=== PATIENT | female | born 1995 | race Hispanic/Latino ===

== ENCOUNTER 2018-01-13 07:02 | Inpatient (IN) | payer OTHER ==
[~2018-01-13 07:02] MED LIST: ACETAMINOPHEN 500 MG TAB PO PRN; DIPHENHYDRAMINE 50 MG/ML VIAL IV PRN; METOCLOPRAMIDE 10 MG/2mL INJ IV PRN; ONDANSETRON 4 MG/2 ML VIAL IV PRN; Ringers Lactate 1,000 ML IV PRN; Ringers Lactate 1,000 ML IV SCH
--- OUTSIDE RECORDS SUMMARY | 2018-01-13 07:04 | XMS REPORT ---
:1995 Author Organization eClinicalWorks Care Team Providers Name Role Phone Agnieszka Anna Provider Role Unavailable Allergies No Known Allergies Problems Problem Type Condition Code Onset Dates Condition Status Problem Multigravida in third trimester Z34.83 Active Problem Abnormal glucose tolerance in O99.810 Active mother complicating Problem Gestational diabetes mellitus (GDM) O24.419 Active in third trimester, gestational diabetes method of control unspecified Assessment Multigravida in third trimester Z34.83 Active Assessment Gestational diabetes mellitus (GDM) O24.419 Active in third trimester, gestational diabetes method of control unspecified Medications Medication Code System Code Instructions Start End Date Status Dosage Date Ferralet 90 [facility] [id number] 90-1 MG Orally October 16, Active 1 tablet Once a day 2017 Results No Known Results Summary Purpose eClinicalWorks Submission
--- OUTSIDE RECORDS SUMMARY | 2018-01-13 07:04 | XMS REPORT ---
[...] gestational diabetes method of control unspecified Assessment Gestational diabetes mellitus (GDM) O24.419 Active in third trimester, gestational diabetes method of control unspecified Assessment Multigravida in third trimester Z34.83 Active Medications Medication Code System Code Instructions Start End Date Status Dosage Date Ferralet [address] [facility] [id number] 90-1 MG Orally October 16, Active 1 tablet Once a day 2017 Results No Known Results Summary Purpose eClinicalWorks Submission
--- OUTSIDE RECORDS SUMMARY | 2018-01-13 07:04 | XMS REPORT ---
:1995 Author Organization eClinicalWorks Care Team Providers Name Role Phone Agnieszka Anna Provider Role Unavailable Allergies No Known Allergies Problems Problem Type Condition Code Onset Dates Condition Status Problem Multigravida in third trimester Z34.83 Active Assessment Gestational diabetes mellitus (GDM) O24.419 Active in third trimester, gestational diabetes method of control unspecified Problem Gestational diabetes mellitus (GDM) O24.419 Active in third trimester, gestational diabetes method of control unspecified Assessment Multigravida in third trimester Z34.83 Active Medications Medication Code Code Instructions Start End Date Status Dosage System Date Ferralet 90 [facility] [id number] 90-1 MG Orally October 16, Active 1 tablet Once a day 2017 Macrobid [facility] [id number] 100 MG Orally January 08, Active 1 capsule every 12 hrs 2018 with food Results No Known Results Summary Purpose eClinicalWorks Submission
--- OUTSIDE RECORDS SUMMARY | 2018-01-13 07:04 | XMS REPORT ---
:1995 Author Organization eClinicalWorks Care Team Providers Name Role Phone Agnieszka Anna Provider Role Unavailable Allergies No Known Allergies Problems Problem Type Condition Code Onset Dates Condition Status Problem Multigravida in third trimester Z34.83 Active Assessment Multigravida in third trimester Z34.83 Active Problem Gestational diabetes mellitus (GDM) O24.419 Active in third trimester, gestational diabetes method of control unspecified Assessment Gestational diabetes mellitus (GDM) O24.419 Active in third trimester, gestational diabetes method of control unspecified Assessment Symptom involving bladder R39.89 Active Medications Medication Code Code Instructions Start End Date Status Dosage System Date Ferralet 90 [facility] [id number] 90-1 MG Orally October 16, Active 1 tablet Once a day 2017 Macrobid [facility] 23456306899 100 MG Orally January 08, Active 1 capsule every 12 hrs 2018 with food Results No Known Results Summary Purpose eClinicalWorks Submission
--- OUTSIDE RECORDS SUMMARY | 2018-01-13 07:04 | XMS REPORT ---
[...] End Date Status Dosage Date Ferralet 90 [facility] [id number] 90-1 MG Orally October 16, Active 1 tablet Once a day 2017 Results No Known Results Summary Purpose eClinicalWorks Submission
--- OUTSIDE RECORDS SUMMARY | 2018-01-13 07:04 | XMS REPORT ---
:1995 Author Organization eClinicalWorks Care Team Providers Name Role Phone Agnieszka Anna Provider Role Unavailable Allergies No Known Allergies Problems Problem Type Condition Code Onset Dates Condition Status Problem Abnormal glucose tolerance in O99.810 Active mother complicating Assessment Multigravida in third trimester Z34.83 Active Problem Multigravida in third trimester Z34.83 Active Assessment Abnormal glucose tolerance in O99.810 Active mother complicating Medications Medication Code System Code Instructions Start End Date Status Dosage Date Ferralet 90 [facility] [id number] 90-1 MG Orally October 16, Active 1 tablet Once a day 2018 Results No Known Results Summary Purpose eClinicalWorks Submission
[2018-01-13] MEDS ORDERED: miSOPROStol 100 MCG TAB PO ONE (08:00)
[2018-01-13 08:26] LABS: Absolute Lymphocytes (CBC) 3.2 K/uL (0.7-4.9); Absolute Neutrophil 6.3 K/uL (1.8-8.0); Basophils % 0.4 % (0-1.3); Eosinophils % 0.5 % (0-4.4); Hematocrit 36.7 % (36.0-45.0); Lymphocytes % 30.3 % (15.3-44.8); MCH 28.1 pg (27.0-35.0); MCV 85.3 fL (80-100); MPV 9.5 fL (7.6-11.3); Monocytes % 9.2 % (3.3-12.3)
[2018-01-13 08:27] LABS: Urine Appearance CLEAR; Urine Bilirubin NEGATIVE (NEG); Urine Blood NEGATIVE (NEG); Urine Color YELLOW; Urine Glucose NEGATIVE (NEG); Urine Protein TRACE (NEG); Urine Specific Gravity >=1.030 (1.005-1.030)
[2018-01-13 08:28] VITALS: BMI 33.3
[2018-01-13 08:38] LABS: Urine Microscopic Reflex ORDER UMIC
[2018-01-13 08:49] LABS: RPR Titer ND
--- NOTE | 2018-01-13 09:21 | P.HP ---
Certification for Inpatient Patient admitted to: Inpatient With expected LOS: >2 Midnights Patient will require the following post-hospital care: None Practitioner: I am a practitioner with admitting privileges, knowledge of patient current condition, hospital course, and medical plan of care. Services: Services provided to patient in accordance with Admission requirements found in Title 42 Section 412.3 of the Code of Federal Regulations Patient History Date of Service: 01/13/18 Reason for admission: Induction of labor/GDM History of Present Illness: 22 y.o. at 38w5d by second trimester ultrasound presents for induction of labor due to diagnosis of GDM. She is diet controlled with moderate control reported. She has had follow-up with maternal medicine since approximately 34 weeks of gestation. She started care with me at 20 weeks when she relocated here from [place] following [place]. There was a lapse in care of ~6 weeks early in the course due to reported social issues but she has had routine an adequate follow up since then. On admission, denies bleeding, pain or leakage of fluid. Baby is active. Most recent MFM reports mild ventriculomegaly. Quad screen was negative. MADELINE: 01/22/2018 GBS negative Allergies No Known Allergies Allergy (Unverified 09/17/17 19:09) - Past Medical/Surgical History Diabetic: No -: GDM -: H/o miscarriage Past Surgical History: Patient denies surgical history - Social History Smoking Status: Never smoker Alcohol use: No CD- Drugs: No Caffeine use: No Place of Residence: Home Physical Examination - Vital Signs Temperature: 98 F Blood Pressure: 110/64 Pulse: 84 Respirations: 16 - Physical Exam General: Alert, In no apparent distress, Oriented x3 HEENT: Atraumatic, Normocephalic Respiratory: Other (Normal effort) Cardiovascular: Normal pulses Musculoskeletal: Swelling (Trace ankle edema) Integumentary: No rashes, No breakdown - Studies Laboratory Data (last 24 hrs) 01/13/18 07:25: WBC 10.5, Hgb 12.1, Hct 36.7, Plt Count 348 Female Exam - Female Pelvic Cervix: Dilation (3 per RN exam), Effacement (70), station (-1) Uterus: Non-tender, Soft, Gravid - Obstetrics heart rate tracing: Category 1 Contractions: Frequency (q 3-4 min) Amniotic membrane: Intact Assessment and Plan - Problems (Diagnosis) (1) GDM (gestational diabetes mellitus) Current Visit: Yes Status: Acute Plan: Patient admitted for induction of labor. Cervical ripening has been started with Cytotec p.o. x1 dose. She has now has a favorable cervix. Will transition to Pitocin following 4 hr from last Cytotec administration. Plan for Accu- Cheks q4 hr during induction and q2 hr in active labor. She desires an epidural and may receive at her request. Will keep on continuous monitoring. Qualifiers: Gestational diabetes mellitus control: diet-controlled Trimester: third trimester Qualified Code(s): O24.410 - Gestational diabetes mellitus in , diet controlled (2) Language barrier affecting health care Current Visit: Yes Status: Chronic Plan: Speaks [place]. - Advance Directives Does patient have a Living Will: No Does patient have a Durable POA for Healthcare: No
[2018-01-13 09:57] LABS: Urine Amorphous Sediment 1+ /HPF (NONE SEEN); Urine Bacteria <20 /HPF (<20); Urine Culture Reflex Order REFLEXED; Urine Mucus 1+ /HPF (NONE SEEN); Urine RBC <5 /HPF (NONE SEEN)
[2018-01-13] MEDS ORDERED: BUPIVACAINE 0.25% PF 10 ML VIAL IV PRN (11:16)
--- NOTE | 2018-01-13 12:13 | P.PN ---
Date of Service: 01/13/18 Pt seen and examined. She denies significant pain. Discussed AROM, pt agreed. Procedure done without incident. Scant amount of clear fluid noted. SVE: 3-/-2, mid, soft. VSS Continue IOL process. Epidural per patient request.
[2018-01-13] MEDS ORDERED: FENTANYL CITR 100 MCG/2 ML IV ONE (12:28)
[2018-01-13] MEDS ORDERED: FENTANYL/BUPIVACAINE/NS/PF 200 MCG/100 ML BAG EP PRN (12:46)
[2018-01-13] MEDS ORDERED: ROPIVACAINE HCL 0 ML IV ONE (13:00)
[2018-01-13] MEDS ORDERED: ROPIVACAINE HCL 0 ML ONE (14:09)
[2018-01-13] MEDS ORDERED: OXYTOCIN/LR 20 UNIT/1,000 ML BAG IV ONE (14:36)
[2018-01-13] MEDS ORDERED: OXYTOCIN/LR 20 UNIT/1,000 ML BAG IV SCH (15:00)
[2018-01-13] MEDS ORDERED: BUTORPHANOL 1 MG/ML INJ IV PRN (15:09)
[2018-01-13] MEDS ORDERED: CARBOPROST TROME 250 MCG/ML IM ONE (16:58)
[2018-01-13] MEDS ORDERED: METHYLERGONOVINE 0.2MG/ML AMP IM ONE (16:59)
--- NOTE | 2018-01-13 18:10 | P.OP ---
Preoperative diagnosis: Induction of labor, GDM Postoperative diagnosis: Same Primary procedure: Secondary procedure: AROM Anesthesia: None Estimated blood loss: 350 cc Specimen: Placenta Findings: See operative report Operative Technique: Findings: Female fetus in HEDY position. APGARS 8/9 at 1 and 5 minutes, respectively. Weight of 7 lbs 10 oz. 2nd degree midline laceration. Left labial laceration noted. Clear amniotic fluid. Stage I: 5h 12 min, Stage II: 38 min Indications: The patient was admitted to Labor and Delivery for induction of labor due to diagnosis of GDMA1 with moderate control. MADELINE: 01/22/2018. She was followed by MFM. lab showed O+ blood type with negative antibody screen. Hepatitis B surface Ag, RPR, and HIV non-reactive. She is rubella immune. GBS negative. She denied complaints on admission. Procedure: She was admitted for cervical ripening which was done with cytotec PV x1 dose. She made cervical change and AROM was done. Clear fluid was noted. Patient declined an epidural. Contractions and intensity increased increased. She was given Stadol for pain with good result. Labor progressed normally. She had a spontaneous vaginal delivery of a live born female at 17:38 with clear fluid as noted from HEDY position. After controlled delivery of the head the shoulders and body were delivered without difficulty. The was placed on patient's abdomen for skin to skin contact. Findings as recorded above. There was no depression. was vigorous, crying, and moving all extremities. Spontaneous delivery of an intact placenta with a three-vessel cord was noted at 17:43. On examination, there were was a second degree midline laceration and a left labial tear. The midline tear was repaired using 2-0 vicryl in the usual fashion. The left labial tear was approximated by placing a figure of 8 using the same suture. On vaginal exam, there were no noted cervical or vaginal sidewall lacerations. Estimated blood loss was less than 350 cc. Mother and infant are in recovery doing well at this time. Complications: None Fluids & blood products: mIVF Transferred to: Recovery Room Condition: Good
[2018-01-13] MEDS ORDERED: DOCUSATE NA/SENNA CONC 1 TAB PO PRN (18:11)
[2018-01-13] MEDS ORDERED: ZOLPIDEM TARTRATE 5 MG TABLET PO PRN (18:11)
[2018-01-13] MEDS ORDERED: ONDANSETRON 4 MG (ODT) TAB PO PRN ×2 (18:11)
[2018-01-13] MEDS ORDERED: IBUPROFEN 200 MG TAB PO PRN (18:11)
[2018-01-13] MEDS ORDERED: DIPHENHYDRAMINE 25 MG TAB/CAP PO PRN (18:11)
[2018-01-13] MEDS ORDERED: METOCLOPRAMIDE 5 MG TAB PO PRN (18:11)
[2018-01-13] MEDS ORDERED: Ringers Lactate 1,000 ML IV SCH (19:00)
[2018-01-13 22:36] LABS: RPR (Rapid Plasma Reagin) NON-REACT (NON-REACT)
[2018-01-14] MEDS: CODEINE 30MG/APAP 300MG TAB PO PRN ×4 (07:30→20:42)
--- NOTE | 2018-01-14 13:25 | P.DS ---
Admission Date: 01/13/18 Discharge Date: 01/22/18 Disposition: ROUTINE DISCHARGE Comment: Rounding with discharge summary Discharge Condition: GOOD Reason for Admission: Induction of labor/GDM - Problems (1) GDM (gestational diabetes mellitus) Onset Date: 01/14/18 Status: Resolved Qualifiers: Gestational diabetes mellitus control: diet-controlled Trimester: third trimester Qualified Code(s): O24.410 - Gestational diabetes mellitus in , diet controlled (2) Language barrier affecting health care Onset Date: 01/14/18 Status: Chronic Brief History of Present Illness: 22 y.o. at 38w5d by second trimester ultrasound presents for induction of labor due to diagnosis of GDM. She is diet controlled with moderate control reported. She has had follow-up with maternal medicine since approximately 34 weeks of gestation. She started care with [facility] at 20 weeks when she relocated here from [place] following [place]. There was a lapse in care of ~6 weeks early in the course due to reported social issues but she has had routine an adequate follow up since then. On admission, denies bleeding, pain or leakage of fluid. Baby is active. Most recent MFM reports mild ventriculomegaly. Quad screen was negative. MADELINE: 01/22/2018 GBS negative Hospital Course: Patient is admitted for induction of labor due to her diagnosis of GDM, diet controlled. She had moderate control. She is admitted for cervical ripening which was started with Cytotec and then she was transitioned to Pitocin and had AROM. She declined an epidural for pain control. She had normal spontaneous delivery of a healthy baby coral. She was stable for discharge on day 1. Vital Signs/Physical Exam: Temp Pulse Resp BP Pulse Ox 97.9 F 86 16 117/70 01/14/18 11:56 01/14/18 11:56 01/14/18 11:56 01/14/18 11:56 General: Alert, In no apparent distress, Oriented x3 Respiratory: Other (normal effort) Cardiovascular: Normal pulses Gastrointestinal: Soft and benign, Non-distended, No tenderness, Other (Uterus firm and below umbilicus) Musculoskeletal: No swelling, No erythema, No tenderness Integumentary: No rashes, No breakdown Neurological: Normal speech, Normal strength at 5/5 x4 extr Laboratory Data at Discharge: WBC 10.5 K/uL (4.3-10.9) 01/13/18 07:25 Hgb 12.1 g/dL (12.0-15.0) 01/13/18 07:25 Hct 36.7 % (36.0-45.0) 01/13/18 07:25 Plt Count 348 K/uL (152-406) 01/13/18 07:25 Home Medications: Codeine/APAP [Tylenol #3*] 1 tab PO Q4H PRN #15 tab 01/14/18 Ibuprofen 800 mg PO Q8H PRN #30 tablet 01/14/18 New Medications: Codeine/APAP [Tylenol #3*] 1 tab PO Q4H PRN #15 tab PRN Reason: Pain Scale 8-10 (Severe) Ibuprofen 800 mg PO Q8H PRN #30 tablet PRN Reason: Abdominal Cramps Patient Discharge Instructions: Complete pelvic rest for 6 weeks after . Notify physician of heavy bleeding, fever, chills, or other signs of infection. See physician in 6 weeks for exam Followup: Agnieszka Anna MD [Family Provider] -
[2018-01-14 21:05] VITALS: BP 117/71; TEMP 97.8
[2018-01-15 13:31] LABS: HBsAG Nonreactive (Nonreactive)
== END 2018-01-14 20:45 | disposition home or self-care (01) | DRG 775 ==
LOC: 2ND-WC 07:02
PROVIDERS: ADMIT Obstetrics & Gynecology; ATTEND Obstetrics & Gynecology
PROC: 10E0XZZ Delivery of Products of Conception, External Approach (ICD-10-PCS; principal; 2018-01-13)
PROC: 0KQM0ZZ Repair Perineum Muscle, Open Approach (ICD-10-PCS; 2018-01-13)
PROC: 3E0P7VZ Introduction of Hormone into Female Reproductive, Via Natural or Artificial Opening (ICD-10-PCS; 2018-01-13)
PROC: 10907ZC Drainage of Amniotic Fluid, Therapeutic from Products of Conception, Via Natural or Artificial Opening (ICD-10-PCS; 2018-01-13)
PROC: 0UQMXZZ Repair Vulva, External Approach (ICD-10-PCS; 2018-01-13)
DX: O24.420 Gestational diabetes mellitus in childbirth, diet controlled (principal); O70.1 Second degree perineal laceration during delivery; Z3A.38 38 weeks gestation of pregnancy; Z37.0 Single live birth
CPT/HCPCS: 36415; 81003; 81015; 82962; 85025; 86592; 86850; 86900; 86901; 87086; 87088; 87340; 88305; 88307; J0595; J2210; J2405; J2590; J2765; J2795; J3010

== ENCOUNTER 2019-10-08 16:57 | Emergency (ER) | payer OTHER, SELFPAY ==
--- OUTSIDE RECORDS SUMMARY | 2019-10-08 16:59 | XMS REPORT ---
[...] Date Status Dosage System Date Ferralet 90 [facility] [id number] 90-1 MG Orally October 16, Active 1 tablet Once a day 2017 Macrobid [facility] [id number] 100 MG Orally January 08, Active 1 capsule every 12 hrs 2018 with food Results No Known Results Summary Purpose eClinicalWorks Submission
--- OUTSIDE RECORDS SUMMARY | 2019-10-08 16:59 | XMS REPORT ---
[...] End Date Status Dosage Date Ferralet 90 [facility] [id number] 90-1 MG Orally October 16, Active 1 tablet Once a day 2017 Results No Known Results Summary Purpose eClinicalWorks Submission
--- OUTSIDE RECORDS SUMMARY | 2019-10-08 16:59 | XMS REPORT ---
[...] End Date Status Dosage Date Ferralet 90 [facility] [id number] 90-1 MG Orally October 16, Active 1 tablet Once a day 2017 Results No Known Results Summary Purpose eClinicalWorks Submission
--- OUTSIDE RECORDS SUMMARY | 2019-10-08 16:59 | XMS REPORT ---
[...] End Date Status Dosage Date Ferralet 90 [facility] 48252470892 90-1 MG Orally October 16, Active 1 tablet Once a day 2018 Results No Known Results Summary Purpose eClinicalWorks Submission
--- OUTSIDE RECORDS SUMMARY | 2019-10-08 16:59 | XMS REPORT ---
[...] End Date Status Dosage Date Ferralet 90 [facility] 27770195009 90-1 MG Orally October 16, Active 1 tablet Once a day 2017 Results No Known Results Summary Purpose eClinicalWorks Submission
--- OUTSIDE RECORDS SUMMARY | 2019-10-08 16:59 | XMS REPORT ---
[...] Date Status Dosage System Date Ferralet 90 [facility] 94907663540 90-1 MG Orally October 16, Active 1 tablet Once a day 2017 Macrobid [facility] [id number] 100 MG Orally January 08, Active 1 capsule every 12 hrs 2018 with food Results No Known Results Summary Purpose eClinicalWorks Submission
[2019-10-08 19:19] LABS: Absolute Lymphocytes (CBC) 3.2 K/uL (0.7-4.9); Basophils % 0.5 % (0-1.3); Lymphocytes % 28.3 % (15.3-44.8); MPV 8.5 fL (7.6-11.3); RBC Red Blood Cell Count 4.29 M/uL (3.86-4.86)
[2019-10-08 19:35] LABS: ALT/SGPT 21 U/L (12-78); AST/SGOT 13 U/L (15-37); Albumin 3.9 g/dL (3.4-5.0); Alkaline Phosphatase 91 U/L (45-117); BUN Blood Urea Nitrogen 16 mg/dL (7-18); Bicarbonate 25 mmol/L (21-32); Bilirubin Direct < 0.1 mg/dL (0-0.2); Bilirubin Total 0.1 mg/dL (0.2-1.0); Glucose Level 92 mg/dL (74-106); Lipase 102 U/L (73-393); Potassium 3.9 mmol/L (3.5-5.1); Sodium Level 137 mmol/L (136-145)
[2019-10-08 19:35] LABS: Urine Blood 3+ (NEG); Urine Glucose NEGATIVE (NEG); Urine Protein NEGATIVE (NEG); Urine Specific Gravity 1.025 (1.005-1.030); Urine pH 6.5 (5.0-7.0)
[2019-10-08 20:09] LABS: Urine Bacteria 20-50 /HPF (<20); Urine Culture Reflex Order REFLEXED; Urine RBC NONE SEEN /HPF (NONE SEEN)
[2019-10-08] MEDS ORDERED: CEFTRIAXONE/SWI 1gm 1 GM/10 ML SYR ONE (20:48)
--- NOTE | 2019-10-08 21:37 | EDPHYS ---
Physician Documentation [facility] Name: Jorge Ortega Annette Age: 24 yrs Sex: Female : 1995 Arrival Date: 10/08/2019 Time: 16:58 Bed 25 Private MD: ED Physician Zac Medina HPI: 10/08 18:46 This 24 yrs old Female presents to ER via Ambulatory with complaints of pm1 Vaginal bleeding and nausea. 18:46 The patient presents with vaginal bleeding that is light. Onset: The symptoms/episode pm1 began/occurred yesterday, took test yesterday at home that was negative. Modifying factors: The symptoms are alleviated by nothing, the symptoms are aggravated by nothing. Associated signs and symptoms: Pertinent positives: nausea, Pertinent negatives: diarrhea, dysuria, fever, vomiting, Abdominal pain. Severity of symptoms: in the emergency department the symptoms are unchanged. The patient is sexually active. The patient's method of control includes nothing. Patient has not had a menstrual cycle for 6 months and she started having light vaginal bleeding yesterday. Patient reports nausea without any abdominal pain present. 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 - Coronavirus screen:: The patient has NOT traveled to [place] in the past 14 days. - Social history:: Smoking status: Patient/guardian denies using tobacco. - Ebola Screening: : Patient denies travel to an Ebola-affected area in the 21 days before illness onset. ROS: 18:46 Positive for vaginal bleeding, Negative for urinary symptoms, flank pain, vaginal pm1 discharge. 18:46 Constitutional: Negative for fever, chills, and weight loss, Cardiovascular: Negative for chest pain, palpitations, and edema, Respiratory: Negative for shortness of breath, cough, wheezing, and pleuritic chest pain. 18:46 Back: Negative for injury and pain, MS/Extremity: Negative for injury and deformity, Skin: Negative for injury, rash, and discoloration, Neuro: Negative for headache, weakness, numbness, tingling, and seizure. 18:46 Abdomen/GI: Positive for nausea, Negative for abdominal pain, vomiting, diarrhea, constipation. Exam: 18:46 Constitutional: This is a well developed, well nourished patient who is awake, alert, pm1 and in no acute distress. Head/Face: Normocephalic, atraumatic. Neck: Trachea midline, no thyromegaly or masses palpated, and no cervical lymphadenopathy. Supple, full range of motion without nuchal rigidity, or vertebral point tenderness. No Meningismus. Chest/axilla: Normal chest wall appearance and motion. Nontender with no deformity. No lesions are appreciated. Cardiovascular: Regular rate and rhythm with a normal S1 and S2. No gallops, murmurs, or rubs. Normal PMI, no JVD. No pulse deficits. Respiratory: Lungs have equal breath sounds bilaterally, clear to auscultation and percussion. No rales, rhonchi or wheezes noted. No increased work of breathing, no retractions or nasal flaring. 18:46 Back: No spinal tenderness. No costovertebral tenderness. Full range of motion. Skin: Warm, dry with normal turgor. Normal color with no rashes, no lesions, and no evidence of cellulitis. MS/ Extremity: Pulses equal, no cyanosis. Neurovascular intact. Full, normal range of motion. 18:46 Abdomen/GI: Inspection: abdomen appears normal, Bowel sounds: normal, Palpation: abdomen is soft and non-tender, in all quadrants, mass, is not appreciated, rebound tenderness, is not appreciated. 18:46 Neuro: Orientation: is normal, Motor: is normal, moves all fours, Gait: is steady, at a normal pace, without difficulty. Vital Signs: 17:07 BP 123 / 66; Pulse 88; Resp 18; Temp 97.6; Pulse Ox 100% on R/A; Height 5 ft. 2 in. aj1 (157.48 cm) (R); Pain 5/10; 19:10 BP 118 / 74; Pulse 87; Resp 14; Temp 98.0; Pain 0/10; ls4 20:00 BP 119 / 73; Pulse 87; Resp 16; Temp 97.9(O); Pulse Ox 99% on R/A; Pain 0/10; ls4 21:00 BP 114 / 72; Pulse 87; Resp 14; Temp 98.0(O); Pulse Ox 99% on R/A; Pain 0/10; ls4 MDM: 18:45 Patient medically screened. pm1 21:35 Data reviewed: vital signs. Data interpreted: Pulse oximetry: on room air is 99 %. pm1 Interpretation: normal. Counseling: I had a detailed discussion with the patient and/or guardian regarding: the historical points, exam findings, and any diagnostic results supporting the discharge/admit diagnosis, lab results, radiology results, the need for outpatient follow up, to return to the emergency department if symptoms worsen or persist or if there are any questions or concerns that arise at home. 10/08 18:46 Order name: Basic Metabolic Panel 10/08 18:46 Order name: CBC with Diff 10/08 18:46 Order name: Creatinine for Radiology 10/08 18:46 Order name: Hepatic Function 10/08 18:46 Order name: Lipase pm10/08 19:20 Order name: Quantitative Hcg 10/08 19:20 Order name: Abo/rh Typing 10/08 19:22 Order name: CBC with Automated Diff; Complete Time: 19:35 EDMS 10/08 19:26 Order name: Urine Dipstick--Ancillary (enter results) 2 10/08 19:26 Order name: Urine --Ancillary (enter results) 2 10/08 19:35 Order name: Creatinine (Radiology Only); Complete Time: 19:35 EDMS 10/08 19:35 Order name: Urine Microscopic Only 10/08 19:37 Order name: Basic Metabolic Panel; Complete Time: 19:40 EDMS 10/08 19:37 Order name: Liver (Hepatic) Function; Complete Time: 19:40 EDMS 10/08 18:46 Order name: IV Saline Lock; Complete Time: 19:12 pm10/08 18:46 Order name: Labs collected and sent; Complete Time: 19:12 pm10/08 18:46 Order name: Urine Dipstick-Ancillary (obtain specimen); Complete Time: 20:25 pm10/08 18:46 Order name: Urine Test (obtain specimen); Complete Time: 20:25 pm10/08 19:20 Order name: NPO; Complete Time: 20:47 pm10/08 19:37 Order name: Lipase; Complete Time: 19:40 EDMS 10/08 19:37 Order name: Urine --Ancillary; Complete Time: 19:40 EDMS 10/08 19:37 Order name: Urine Dipstick-Ancillary; Complete Time: 19:40 EDMS 10/08 20:11 Order name: Urine Microscopic Only; Complete Time: 20:13 EDMS 10/08 20:32 Order name: US Transvaginal Ob pm1 10/08 21:05 Order name: HCG, Quantitative; Complete Time: 21:35 EDMS Administered Medications: 19:19 CANCELLED (Physician Discretion): Zofran 4 mg IVP once; over 2 minutes pm1 20:44 Drug: Rocephin 1 grams Route: IV; Rate: calculated rate; Site: left antecubital; ls4 20:54 Follow up: Response: No adverse reaction; IV Status: Completed infusion; IV Intake: [id number] Disposition: 10/08/19 21:36 Discharged to Home. Impression: Threatened , Urinary tract infection, site not specified, Nausea. - Condition is Stable. - Discharge Instructions: Nausea and Vomiting, Adult, Threatened Miscarriage, and Urinary Tract Infection, Pelvic Rest. - Prescriptions for Macrobid 100 mg Oral Capsule - take 1 capsule by ORAL route every 12 hours for 10 days; 20 capsule. promethazine 25 mg Oral Tablet - take 1 tablet by ORAL route every 6 hours As needed; 20 tablet. - Medication Reconciliation Form, Thank You Letter, Antibiotic Education, Prescription Opioid Use form. - Follow up: Emergency Department; When: As needed; Reason: Worsening of condition. Follow up: Private Physician; When: 2 - 3 days; Reason: Recheck today's complaints, Continuance of care, Re-evaluation by your physician. - Problem is new. - Symptoms have improved. Addendum: 10/11/2019 07:15 Co-signature as Attending Physician, Zac Medina MD I agree with the assessment and k dr plan of care. Signatures: Dispatcher [employer] EDMS Mikala Heaton RN RN aj1 Zac Medina MD MD kdr Marinas, Patrick, MEAL TEMPERER MEAL TEMPERER pm1 Trena Jack RN RN ls4 Corrections: (The following items were deleted from the chart) 10/08 19:19 19:17 Zofran 4 mg IVP once; over 2 minutes ordered. pm1 pm1 22:17 21:36 10/08/2019 21:36 Discharged to Home. Impression: Threatened ; Urinary ls4 tract infection, site not specified; Nausea. Condition is Stable. Forms are Medication Reconciliation Form, Thank You Letter, Antibiotic Education, Prescription Opioid Use. Follow up: Emergency Department; When: As needed; Reason: Worsening of condition. Follow up: Private Physician; When: 2 - 3 days; Reason: Recheck today's complaints, Continuance of care, Re-evaluation by your physician. Problem is new. Symptoms have improved. pm1
--- NOTE | 2019-10-08 21:37 | ER ---
Nurse's Notes [facility] Name: Jorge Ortega Annette Age: 24 yrs Sex: Female : 1995 Arrival Date: 10/08/2019 Time: 16:58 Bed 25 Private MD: Diagnosis: Threatened ;Urinary tract infection, site not specified;Nausea Presentation: 10/08 17:02 Presenting complaint: Patient states: Via children's counselor #[id number] for the past 5 or 6 months aj1 she has not had a period. A week ago she started having nausea and abdominal discomfort. States that she did a test yesterday and it was negative. Transition of care: patient was not received from another setting of care. Onset of symptoms was 2018. Risk Assessment: Do you want to hurt yourself or someone else? Patient reports no desire to harm self or others. Initial Sepsis Screen: Does the patient meet any 2 criteria? No. Patient's initial sepsis screen is negative. Does the patient have a suspected source of infection? No. Patient's initial sepsis screen is negative. Care prior to arrival: None. 17:02 Method Of Arrival: Ambulatory aj1 17:02 Acuity: VIRA 3 aj1 18:38 Note Patient's states that she has started to have some vaginal bleeding now. aj1 Triage Assessment: 17:07 General: Appears in no apparent distress. comfortable, Behavior is calm, cooperative, aj1 appropriate for age. Pain: Pain currently is 5 out of 10 on a pain scale. Neuro: Level of Consciousness is awake, alert, obeys commands. Cardiovascular: Patient's skin is warm and dry. Respiratory: Airway is patent Respiratory effort is even, unlabored, Respiratory pattern is regular, symmetrical. GI: Reports cramping. 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 - Coronavirus screen:: The patient has NOT traveled to [place] in the past 14 days. - Social history:: Smoking status: Patient/guardian denies using tobacco. - Ebola Screening: : Patient denies travel to an Ebola-affected area in the 21 days before illness onset. Screenin:53 Abuse screen: Denies threats or abuse. Denies injuries from another. Nutritional ls4 screening: No deficits noted. Tuberculosis screening: No symptoms or risk factors identified. Fall Risk None identified. Assessment: 19:00 General: Appears in no apparent distress. comfortable, Behavior is calm, cooperative. ls4 Pain: Denies pain. Neuro: No deficits noted. Cardiovascular: No deficits noted. Respiratory: No deficits noted. GI: No deficits noted. : Reports discharge, from vagina that is bloody, vaginal bleeding that is spotty, since 1800. Derm: No deficits noted. Musculoskeletal: No deficits noted. 20:00 Reassessment: Patient appears in no apparent distress at this time. Patient and/or ls4 family updated on plan of care and expected duration. Pain level reassessed. Patient is alert, oriented x 3, equal unlabored respirations, skin warm/dry/pink. 21:00 Reassessment: Patient appears in no apparent distress at this time. Patient and/or ls4 family updated on plan of care and expected duration. Pain level reassessed. Patient is alert, oriented x 3, equal unlabored respirations, skin warm/dry/pink. 21:52 Reassessment: Patient appears in no apparent distress at this time. Patient and/or ls4 family updated on plan of care and expected duration. Pain level reassessed. Patient is alert, oriented x 3, equal unlabored respirations, skin warm/dry/pink. Vital Signs: 17:07 BP 123 / 66; Pulse 88; Resp 18; Temp 97.6; Pulse Ox 100% on R/A; Height 5 ft. 2 in. aj1 (157.48 cm) (R); Pain 5/10; 19:10 BP 118 / 74; Pulse 87; Resp 14; Temp 98.0; Pain 0/10; ls4 20:00 BP 119 / 73; Pulse 87; Resp 16; Temp 97.9(O); Pulse Ox 99% on R/A; Pain 0/10; ls4 21:00 BP 114 / 72; Pulse 87; Resp 14; Temp 98.0(O); Pulse Ox 99% on R/A; Pain 0/10; ls4 ED Course: 16:58 Patient arrived in ED. as 17:07 Triage completed. aj1 17:07 Arm band placed on Patient placed in waiting room, Patient notified of wait time. aj1 18:44 [facility] pm1 18:44 Zac Medina MD is Attending Physician. pm1 18:52 Trena Jack RN is Primary Nurse. ls4 18:53 Patient has correct armband on for positive identification. Placed in gown. Bed in low ls4 position. Call light in reach. Side rails up X 1. Pulse ox on. NIBP on. 18:53 No provider procedures requiring assistance completed. ls4 19:12 Initial lab(s) drawn, by wy, sent to lab. Inserted saline lock: 22 gauge in left lt1 antecubital area, using aseptic technique. 19:39 Urine --Ancillary (enter results) Sent. ls4 19:40 Urine Dipstick--Ancillary (enter results) Sent. ls4 19:40 Abo/rh Typing Sent. ls4 19:40 Quantitative Hcg Sent. ls4 20:25 Urine Microscopic Only Sent. lt1 20:59 Basic Metabolic Panel Sent. ls4 21:00 CBC with Diff Sent. ls4 21:00 Hepatic Function Sent. ls4 21:00 Creatinine for Radiology Sent. ls4 21:00 Lipase Sent. ls4 22:16 IV discontinued, intact, bleeding controlled, No redness/swelling at site. Pressure ls4 dressing applied. Administered Medications: 19:19 CANCELLED (Physician Discretion): Zofran 4 mg IVP once; over 2 minutes pm1 20:44 Drug: Rocephin 1 grams Route: IV; Rate: calculated rate; Site: left antecubital; ls4 20:54 Follow up: Response: No adverse reaction; IV Status: Completed infusion; IV Intake: [id number] Intake: 20:54 IV: 10ml; Total: 10ml. ls4 Outcome: 21:36 Discharge ordered by . pm1 22:15 Discharged to home ambulatory, with family. ls4 22:15 Condition: stable 22:15 Discharge instructions given to patient, family, Instructed on discharge instructions, follow up and referral plans. medication usage, Demonstrated understanding of instructions, follow-up care, medications. 22:17 Patient left the ED. ls4 Signatures: Mikala Heaton RN RN aj1 Isabel Horvath as John Perdomo NP TYPEWRITER TESTER pm1 Trena Jack, JESIKA RN ls4 Clementina Williamson lt1 Corrections: (The following items were deleted from the chart) 21:54 21:01 BP 119 / 73; Pulse 114bpm; Resp 16bpm; Pulse Ox 99% RA; Temp 99.3F; Pain 3/10; ls4ls4 23:37 21:44 IV Status: Completed infusion; IV Intake: 1000ml ls4 ls4
[2019-10-08 23:17] VITALS: O2SAT 99
[2019-10-08 23:18] VITALS: BP 114/72; TEMP 98
--- NOTE | 2019-10-09 08:05 | RAD REPORT ---
EXAM DESCRIPTION: US - Transvaginal OB - 10/08/2019 9:23 pm CLINICAL HISTORY: VAGINAL BLEEDING, , pelvic pain Preliminary findings provided at the time of the study. COMPARISON: No relevant comparison FINDINGS: Endovaginal sonography shows retroflexed uterus. A normal shaped gestational sac is presen t in the fundal portion of the endometrial cavity. Yolk sac is identified. [place]-rump length measurem ents correspond to a 7 week 2 day age. Calculated MADELINE would be 05/24[birth year]2020. Heart rate is 152 BPM. No intrauterine hematoma or suspicious mass. A 3.7 centimeter oval isoechoic to slightly hypoechoic mass is present in the midportion of the uterus. This has the appearance of a fibroid. Both ovaries are identified. Blood flow is seen in the ovarian stroma. A 15 millimeter right ovarian cyst is present. No adnexal mass. No blood or fluid in the cul de sac. IMPRESSION: Single 7 week 2 day IUP in a normal shaped gestational sac. Heart rate is 152 BPM. Calcu lated MADELINE is 05/24/2020. A 3.7 centimeter fibroid is present in the midportion of the uterus. No ovarian or adnexal abnormalities.
== END 2019-10-08 22:17 | disposition home or self-care (01) ==
LOC: ER 16:57
DX: O20.0 Threatened abortion (principal); O23.41 Unspecified infection of urinary tract in pregnancy, first trimester
CPT/HCPCS: 36415; 76817; 80048; 80076; 81003; 81015; 81025; 83690; 84702; 85025; 87086; 87088; 96374; 99284; J0696